=== PATIENT | female | born 1990 | race Caucasian/White ===

== ENCOUNTER 2018-04-21 12:09 | Emergency (ER) | payer OTHER ==
[2018-04-21 12:09] VITALS: BMI 34.0
[2018-04-21 12:20] VITALS: BP 114/77; PULSE 79; RESP 18; TEMP 98.3; O2SAT 100
--- NOTE | 2018-04-21 13:38 | C.PDOC ---
History Of Present Illness 27 year old female presents to the ED c/o right breast pain for the past 2 days. Patient states her last [employer]EL[employer] visit was in January, has not taken any medication for her pain. Patient denies fever, chills, nausea, vomit, injury, fall, trauma, weakness, numbness. Time Seen by Provider: 04/21/18 13:07 Chief Complaint (Nursing): Breast Problem History Per: Patient History/Exam Limitations: no limitations Onset/Duration Of Symptoms: Days Current Symptoms Are (Timing): Still Present Recent travel outside of the [place]: No Additional History Per: Patient Past Medical History Reviewed: Historical Data, Nursing Documentation, Vital Signs Vital Signs: Last Vital Signs Temp 98.3 F 04/21/18 12:17 Pulse 79 04/21/18 12:17 Resp 18 04/21/18 12:17 BP 114/77 04/21/18 12:17 Pulse Ox 100 04/21/18 13:40 - Medical History PMH: No Chronic Diseases Surgical History: No Surg Hx - [facility] Procedures EXTRACTION OF POC, LOW CERVICAL, OPEN APPROACH (08/26/16) Family History: States: Unknown Family Hx - Social History Hx Alcohol Use: No Hx Substance Use: No - Immunization History Hx Tetanus Toxoid Vaccination: No Hx Influenza Vaccination: No Hx Pneumococcal Vaccination: No Review Of Systems Constitutional: Negative for: Fever, Chills Cardiovascular: Positive for: Other (breast pain). Negative for: Chest Pain Gastrointestinal: Negative for: Nausea, Vomiting Skin: Negative for: Rash Neurological: Negative for: Weakness, Numbness Physical Exam - Physical Exam Appears: Non-toxic, No Acute Distress Skin: Normal Color, Warm, Dry Head: Atraumatic, Normacephalic Eye(s): bilateral: Normal Inspection Lymphatic: No Axilla Node Tenderness (Bilateral ) Chest: Symmetrical, Tenderness (right breast at the 9 o'clock position, no redness, no swelling), Other (B/L nipple no discharge. Questionable small mass vs dense breast tissue on deep palpation. Left breast non tender) Cardiovascular: Rhythm Regular, No Murmur Respiratory: Normal Breath Sounds, No Rales, No Rhonchi, No Wheezing Extremity: Normal ROM Neurological/Psych: Oriented x3, Normal Speech Gait: Steady ED Course And Treatment O2 Sat by Pulse Oximetry: 100 (On RA) Pulse Ox Interpretation: Normal Medical Decision Making Medical Decision Making: Plan: * Tylenol 650 mg PO Patient is not , with 2 day history of breast pain will D/C to [employer] follow up and recommended studies, Tylenol given at the ED. Disposition Counseled Patient/Family Regarding: Diagnosis, Need For Followup, Rx Given - Disposition [facility] [Outside] Disposition: HOME/ ROUTINE Disposition Time: 13:36 Condition: GOOD Additional Instructions: Please take Tylenol for pain if needed. Please go to medical clinic downstairs upon discharge to make soonest appointment with the women's clinic or with computer science teacher of your choice for further evaluation of breast pain. Return to ER for any worse symptoms. Prescriptions: Acetaminophen [Tylenol 325mg tab] 650 mg PO Q6 #30 tab Instructions: Mastalgia (DC) Forms: [facility] [employer] [facility] (Tai[place]ese), General Discharge Instructions - Clinical Impression Clinical Impression: Pain of breast - PA / SOUND ENGINEERING TECHNICIAN / Resident Statement MD/DO has reviewed & agrees with the documentation as recorded. - Scribe Statement The provider has reviewed the documentation as recorded by the Scribe Berhane Roman All medical record entries made by the Scribe were at my direction and personally dictated by me. I have reviewed the chart and agree that the record accurately reflects my personal performance of the history, physical exam, medical decision making, and the department course for this patient. I have also personally directed, reviewed, and agree with the discharge instructions and disposition.
== END 2018-04-21 13:56 | disposition home or self-care (01) ==
LOC: C.ER 12:09
DX: N64.4 Mastodynia (principal)